=== PATIENT | female | born 1960 | race Caucasian/White ===

== ENCOUNTER 2016-06-01 12:53 | Emergency (ER) | payer BC, OTHER ==
[~2016-06-01] VITALS: Ht 160 cm; Wt 114.0 kg
[2016-06-01 12:58] VITALS: BP 146/95; PULSE 93; RESP 16; TEMP 98.1; O2SAT 98
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
[2016-06-01] MEDS ORDERED: GLIM2TAB PO (13:28)
[2016-06-01] MEDS ORDERED: METF1000 PO (13:29)
[2016-06-01] MEDS ORDERED: ONDANSETRON ODT 4 MG TAB PO ONE (13:30)
[2016-06-01] MEDS ORDERED: oxyCODONE/ACETAMINOPHEN 5 MG/325 MG TAB PO ONE (13:30)
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
[2016-06-01] MEDS ORDERED: IBUP800T23 PO (14:14)
== END 2016-06-01 14:53 | disposition home or self-care (01) ==
LOC: NEPB 12:53
DX: S90.31XA Contusion of right foot, initial encounter (principal); E11.9 Type 2 diabetes mellitus without complications; Z79.82 Long term (current) use of aspirin; Z79.84 Long term (current) use of oral hypoglycemic drugs; W20.8XXA Other cause of strike by thrown, projected or falling object, initial encounter
CPT/HCPCS: 73630; 99283; E0113; L3260